=== PATIENT | male | born 1995 | race Caucasian/White ===

== ENCOUNTER 2019-06-06 09:13 | Emergency (ER) | payer BC ==
[~2019-06-06] VITALS: Ht 167.6 cm; Wt 48.1 kg
--- NOTE | 2019-06-06 09:15 | NUR ---
Patient to ER bed 02 to gown for evaluation. Side rails up.
[2019-06-06 09:30] VITALS: BP_SYST 102
[2019-06-06 10:15] LABS: BASOPHILS # (AUTO) 0.1 K/uL (0.0-0.2); BASOPHILS % (AUTO) 0.6 % (0.0-2.0); HEMATOCRIT 48.5 % (36-54); HEMOGLOBIN 16.3 g/dL (14.0-18.0); LYMPHOCYTES # (AUTO) 1.2 K/uL (1.0-5.5); LYMPHOCYTES % (AUTO) 10.8 % (20.5-51.5); MEAN CORPUSCULAR HEMOGLOBIN 27 pg (27-31); MEAN CORPUSCULAR HGB CONC 34 % (32-36); MEAN CORPUSCULAR VOLUME 79 fL (79.0-98.0); MONOCYTES # (AUTO) 0.9 K/uL (0.0-1.0); MONOCYTES % (AUTO) 7.8 % (1.7-9.3); NEUTROPHILS # (AUTO) 9.2 K/uL (1.8-7.7); NEUTROPHILS % (AUTO) 80.8 % (40.0-70.0); PLATELET COUNT (AUTO) 330 K/uL (130-430); RED BLOOD CELL COUNT(AUTO) 6.12 MIL/uL (4.2-6.2); RED CELL DISTRIBUTION WIDTH 12.9 % (9.0-15.0); WHITE BLOOD COUNT (AUTO) 11.4 K/uL (4.8-10.8)
--- NOTE | 2019-06-06 10:20 | NUR ---
ER at bedside examining patient.
[2019-06-06 10:25] LABS: CALCIUM 10.2 mg/dL (8.4-11.0); CREATININE 0.83 mg/dL (0.55-1.30); POTASSIUM 4.7 mmol/L (3.5-5.1)
[2019-06-06 10:25] LABS: BILIRUBIN,URINE 1+ (NEGATIVE); BLOOD, URINE 3+ (NEGATIVE); CLARITY/URINE SL CLOUDY (CLEAR); COLOR,URINE YELLOW (YELLOW); GLUCOSE,URINE NEGATIVE (NEGATIVE); KETONES,URINE TRACE (NEGATIVE); LEUKOCYTE ESTERASE ,URINE 2+ (NEGATIVE); NITRITE, URINE POSITIVE (NEGATIVE); PROTEIN URINE 2+ (NEGATIVE); UROBILINOGEN,URINE 0.2 (0.2-1.0)
[2019-06-06 10:28] LABS: WBC,URINE >100 /HPF (0-3)
[2019-06-06 10:29] LABS: BACTERIA,URINE MODERATE /HPF (None Seen)
[2019-06-06] MEDS ORDERED: ONDANSETRON HCL 4 MG/2 ML VIAL IVP ONE (10:30)
[2019-06-06] MEDS ORDERED: NACL 0.9% 1,000 ML IV ONE (10:30)
[2019-06-06] MEDS ORDERED: KETOROLAC TROMETHAMINE 15 MG VIAL IVP ONE (10:30)
[2019-06-06] MEDS ORDERED: MORPHINE 2 MG/ML INJ. SYRINGE IVP ONE (10:30)
--- NOTE | 2019-06-06 10:30 | NUR ---
patient bib father with cc of abdominal pain since went to urgent care x2 for past couple of days and sent home.alert,awake, oriented, no s/s of distress, vital sign stable, afebrile.denies nausea but mention last experience diarrhea but stop.
[2019-06-06 10:31] LABS: ALBUMIN 5.1 g/dL (3.4-4.8); TOTAL BILIRUBIN 1.1 mg/dL (0.0-1.0)
--- NOTE | 2019-06-06 10:40 | NUR ---
# 20 gauge angiocath placed to right forearm. Use of asceptic technique. Opsite placed over site. Blood return noted. Flushed with 10 cc of normal saline. No evidence of infiltration noted. Patient tolerated well.
[2019-06-06] MEDS ORDERED: fentaNYL CITRATE/PF 100 MCG/2 ML AMP IVP ONE (11:15)
--- NOTE | 2019-06-06 11:31 | NUR ---
Patient transported to radiology via gurney, accompanied by radha.
[2019-06-06 12:50] VITALS: BP_SYST 109
--- NOTE | 2019-06-06 12:50 | NUR ---
Patient given written and verbal discharge instructions and verbalizes understanding. ER MD Caceres discussed with patient the results and treatment provided. Patient in stable condition. ID arm band removed. IV catheter removed intact and dressing applied, no active bleeding. Rx of Macrobin, Zofran given. Patient educated on pain management and to follow up with PMD. Pain Scale 0. Opportunity for questions provided and answered. Medication side effect fact sheet provided.
[2019-06-06] MEDS ORDERED: IOHEXOL 100 ML IV ONE (13:33)
== END 2019-06-06 12:50 | disposition home or self-care (01) ==
LOC: SED 09:13
DX: N39.0 Urinary tract infection, site not specified (principal); R11.10 Vomiting, unspecified; R63.0 Anorexia
CPT/HCPCS: 36415; 74177; 80053; 81000; 83690; 85025; 87086; 87186; 96361; 96374; 96375; 99284; J1885; J2270; J2405; J3010; J7030; Q9967

== ENCOUNTER 2023-07-26 18:02 | Emergency (ER) | payer OTHER, BC ==
[~2023-07-26] VITALS: Ht 167.6 cm; Wt 61.2 kg
[2023-07-26 19:32] VITALS: BP_SYST 125; PULSE 76; RESP 17; O2SAT 99
[2023-07-26] MEDS ORDERED: IBUP-1969 PO (20:14)
[2023-07-26] MEDS ORDERED: DICL20GE TP (20:14)
== END 2023-07-26 20:18 | disposition home or self-care (01) ==
LOC: SED 18:02
DX: S50.01XA Contusion of right elbow, initial encounter (principal); Z79.899 Other long term (current) drug therapy; V89.2XXA Person injured in unspecified motor-vehicle accident, traffic, initial encounter; Y93.89 Activity, other specified; Y92.89 Other specified places as the place of occurrence of the external cause; Y99.8 Other external cause status
CPT/HCPCS: 73060; 73090; 99284